=== PATIENT | female | born 1985 | race Caucasian/White ===

== ENCOUNTER 2021-06-21 15:19 | Emergency (ER) | payer MEDICAID ==
[2021-06-21 16:54] VITALS: BP 170/106
== END 2021-06-21 19:00 | disposition left against medical advice (07) ==
LOC: ED 15:19
DX: M79.604 Pain in right leg (principal); Z53.21 Procedure and treatment not carried out due to patient leaving prior to being seen by health care provider

== ENCOUNTER 2021-06-23 10:32 | Emergency (ER) | payer MEDICAID ==
[2021-06-23] MEDS ORDERED: dexAMETHasone 20 MG/5 ML VIAL IM ONE (12:13)
[2021-06-23] MEDS ORDERED: KETOROLAC 30 MG/1 ML INJ IM ONE (12:13)
--- NOTE | 2021-06-23 12:36 | Emergency Department Report ---
ED Back Pain/Injury HPI - General Chief Complaint: Back Pain/Injury Stated Complaint: RT HIP/BACK PAIN Source: patient Limitations: No Limitations - History of Present Illness Initial Comments: 36-year-old female presents to the ED complaining of low back pain radiating to the right leg x5 days. She states that she has a history of asthma and hypertension. Patient states that she has not tried any dyub-ywr-gvkbnys medication for her low back pain. Patient denies any dysuria, vaginal discharge, recent trauma, fever IV drug use or recent steroid use. Patient states that she normally takes steroids for her asthma but has not taken any recent steroids. Patient denies taking any pvek-tuz-lmmgzlu medication for low back pain. She states pain is currently 8 out of 10. She states pain is worse with movement. She states that when she knows when she sits on her right buttocks when she noticed the pain shoots down her right leg. Patient is ambulatory. No acute distress noted. No obvious deformity noted. No ill appearance noted. Onset/Timin -: Sudden Similar Symptoms Previously: Yes Place: home Radiation: right leg Severity scale (0 -10): 8 Quality: aching Consistency: intermittent Improves With: none Worsens With: none, movement Associated Symptoms: denies other symptoms - Related Data Previous Rx's Medication Instructions Recorded Last Taken Type Naproxen [Naprosyn] 500 mg PO BID 15 Days #30 tablet 06/23/21 Unknown Rx predniSONE [Deltasone] 20 mg PO BID 5 Days #10 tab 06/23/21 Unknown Rx Allergies Allergy/AdvReac Type Severity Reaction Status Date / Time No Known Allergies Allergy Unverified 06/21/21 16:52 ED Review of Systems ROS: Stated complaint: RT HIP/BACK PAIN Other details as noted in HPI Constitutional: denies: chills, fever Eyes: denies: eye pain, eye discharge, vision change ENT: denies: ear pain, throat pain Respiratory: denies: cough, shortness of breath, wheezing Cardiovascular: denies: chest pain, palpitations Endocrine: no symptoms reported Gastrointestinal: denies: abdominal pain, nausea, diarrhea Genitourinary: denies: urgency, dysuria, discharge Musculoskeletal: back pain. denies: joint swelling, arthralgia Skin: denies: rash, lesions Neurological: denies: headache, weakness, paresthesias Psychiatric: denies: anxiety, depression Hematological/Lymphatic: denies: easy bleeding, easy bruising ED Past Medical Hx - Medications Home Medications: Home Medications Medication Instructions Recorded Confirmed Last Taken Type Naproxen [Naprosyn] 500 mg PO BID 15 Days #30 tablet 06/23/21 Unknown Rx predniSONE [Deltasone] 20 mg PO BID 5 Days #10 tab 06/23/21 Unknown Rx ED Physical Exam - General Limitations: No Limitations General appearance: alert, in no apparent distress - Head Head exam: Present: atraumatic, normocephalic - Eye Eye exam: Present: normal appearance - ENT ENT exam: Present: mucous membranes moist - Neck Neck exam: Present: normal inspection - Respiratory Respiratory exam: Present: normal lung sounds bilaterally. Absent: respiratory distress - Cardiovascular Cardiovascular Exam: Present: regular rate, normal rhythm. Absent: systolic murmur, diastolic murmur, rubs, gallop - GI/Abdominal GI/Abdominal exam: Present: soft, normal bowel sounds - Extremities Exam Extremities exam: Present: normal inspection - Back Exam Back exam: Present: normal inspection - Neurological Exam Neurological exam: Present: alert, oriented X3 - Psychiatric Psychiatric exam: Present: normal affect, normal mood - Skin Skin exam: Present: warm, dry, intact, normal color. Absent: rash ED Course Vital Signs 06/23/21 06/23/21 10:54 14:48 Temperature 98.2 F Pulse Rate 95 H 91 H Respiratory 18 16 Rate Blood Pressure 153/83 144/89 [Right] O2 Sat by Pulse 97 99 Oximetry ED Medical Decision Making - Medical Decision Making 36-year-old female presents to the ED complaining of low back pain radiating to the right leg x5 days. She states that she has a history of asthma and hypertension. Patient states that she has not tried any ivry-afr-glbznld medication for her low back pain. Patient denies any dysuria, vaginal discharge, recent trauma, fever IV drug use or recent steroid use. Patient states that she normally takes steroids for her asthma but has not taken any recent steroids. Patient denies taking any rmtr-xvr-iuubxxq medication for low back pain. She states pain is currently 8 out of 10. She states pain is worse with movement. She states that when she knows when she sits on her right buttocks when she noticed the pain shoots down her right leg. Patient is ambulatory. No acute distress noted. No obvious deformity noted. No ill appearance noted. Physical examination is unremarkable patient has a positive straight leg test on the right leg. Toradol 30 mg IM and Decadron 10 mg IM given. Rechecked the patient is resting quietly quietly and comfortable and feeling better. I discussed the results of diagnostic study, my clinical impression and the plan for further treatment with the patient. Patient agrees with plan and discharge at this present time. All question addressed. I have given the patient instruction regarding a diagnosis ,expectation ,follow- up and return precaution. I explained to the patient that emergent condition may arise and to return to the ED for new worsen and any new persisting condition. I have explained the importance of following up with the primary care physician or referral physician listed below has instructed. The patient verbalized understanding of discharge instruction. Critical care attestation.: If time is entered above; I have spent that time in minutes in the direct care of this critically ill patient, excluding procedure time. ED Disposition Clinical Impression: Back pain Qualifiers: Back pain location: low back pain Back pain laterality: bilateral Sciatica presence: with sciatica Sciatica laterality: sciatica of right side Disposition: 01 HOME / SELF CARE / HOMELESS Is pt being admited?: No Does the pt Need Aspirin: No Condition: Stable Instructions: Acute Back Pain, Adult, Sciatica, [id number] Additional Instructions: Take medication as prescribed Return to ED for any worsening symptom Prescriptions: predniSONE [Deltasone] 20 mg PO BID 5 Days #10 tab Naproxen [Naprosyn] 500 mg PO BID 15 Days #30 tablet Referrals: FADY RILEY MD [Primary Care Provider] - 3-5 Days AINSLEY TUTTLE MD [Staff Physician] - 3-5 Days
[2021-06-23 14:50] VITALS: BP 144/89
== END 2021-06-23 14:50 | disposition home or self-care (01) ==
LOC: ED 10:32
DX: M54.50 Low back pain, unspecified (principal)
CPT/HCPCS: 96372; 99282; J1100; J1885